=== PATIENT | female | born 1935 | race African-American/Black ===

== ENCOUNTER 2017-03-08 10:09 | Inpatient (IN) | payer MEDICARE, MEDICAID, OTHER ==
[~2017-03-08] VITALS: Ht 166.4 cm; Wt 106.6 kg
[~2017-03-08 10:09] MED LIST: UNKNOWN MEDICATIONS
[2017-03-08] MEDS ORDERED: SODIUM CHLORIDE 0.9% 1,000 ML IV ONE ×2 (11:11→16:41)
[2017-03-08] MEDS ORDERED: ONDANSETRON HCL 4MG/2ML VIAL IV STA (11:11)
[2017-03-08 11:30] LABS: EOSINOPHILS % 2.4 % (0.0-5.0); HEMATOCRIT. 32.9 % (36.0-48.0); LYMPHOCYTES % 9.8 % (20.0-50.0); MEAN CORPUSCULAR HEMOGLOBIN 30.1 pg (28.0-32.0); MEAN CORPUSCULAR VOLUME 90.4 fL (81.0-99.0); MEAN PLATELET VOLUME 6.6 fl (7.4-10.4); MONOCYTES % 9.8 % (2.0-8.0); PLATELET 326 x1000/uL (130-400); RED BLOOD CELL COUNT 3.64 mill/uL (4.2-5.4); RED CELL DISTRIBUTION WIDTH 14.3 % (11.6-14.6)
[2017-03-08 11:36] LABS: PROTHROMBIN TIME 10.7 sec
[2017-03-08 11:42] LABS: CARBON DIOXIDE 28 mEq/L (21-32); CHLORIDE 101 mEq/L (98-107)
[2017-03-08 13:40] LABS: CLARITY URINE CLEAR (CLEAR); COLOR URINE YELLOW (YELLOW); GLUCOSE URINE NEGATIVE (NEGATIVE); KETONES URINE NEGATIVE (NEGATIVE); LEUKOCYTE ESTERASE URINE NEGATIVE (NEGATIVE); NITRITE URINE NEGATIVE (NEGATIVE); OCCULT BLOOD URINE NEGATIVE (NEGATIVE); PROTEIN URINE NEGATIVE (NEGATIVE); SPECIFIC GRAVITY URINE 1.017 (1.005-1.030); UROBILINOGEN URINE 0.2 E.U./dL (0.2-1.0)
[2017-03-08] MEDS ORDERED: CLONIDINE 0.1MG TABLET PO PRN (18:30)
[2017-03-08] MEDS ORDERED: ENOXAPARIN 40MG/0.4ML SYR SUBCUT SCH (18:30)
[2017-03-08] MEDS ORDERED: HYDROMORPHONE HCL/PF 2MG/ML CPJ IV PRN (18:30)
[2017-03-08] MEDS ORDERED: ZOLPIDEM TARTRATE 5MG TABLET PO PRN (18:45)
[2017-03-08] MEDS ORDERED: SODIUM CHL 0.45% + KCL 20MEQ/L 1,000 ML IV SCH (18:45)
[2017-03-08] MEDS: IBRANCE 100 MG PO SCH (18:48)
[2017-03-08] MEDS: HYDROCODONE/ACETAMINOPHEN 5/325MG TABLET PO PRN (21:19)
[2017-03-08] MEDS: SODIUM CHLORIDE 0.45% 1000ML IV SCH (22:06)
[2017-03-08 23:50] VITALS: BP 110/45
[2017-03-09] VITALS: BP 110/45
[2017-03-09] MEDS: IPRATROPIUM/ALBUTEROL 0.5-3(2.5)MG/3ML NEB HHN SCH ×6 (00:50→20:44)
[2017-03-09] MEDS ORDERED: DEXTROSE 50% WATER 50ML SYRINGE IV PRN (01:45)
[2017-03-09] MEDS ORDERED: FLONASE NASAL SPRAY NS (02:14)
[2017-03-09] MEDS ORDERED: ACET-2178 PO (02:14)
[2017-03-09] MEDS ORDERED: METF500T4 PO (02:14)
[2017-03-09] MEDS ORDERED: ARIP2TAB3 PO (02:14)
[2017-03-09] MEDS ORDERED: HYDR-523 PO (02:14)
[2017-03-09] MEDS ORDERED: TRAZ-132 PO (02:14)
[2017-03-09] MEDS ORDERED: ASPI-1159 PO (02:14)
[2017-03-09] MEDS ORDERED: CHOL500010 PO (02:14)
[2017-03-09] MEDS ORDERED: LAMO25TA4 PO (02:14)
[2017-03-09] MEDS ORDERED: VALS160T2 PO (02:14)
[2017-03-09] MEDS ORDERED: PATAODR OP (02:14)
[2017-03-09] MEDS ORDERED: CEPACOL PO (02:14)
[2017-03-09] MEDS ORDERED: PARO40TA PO (02:14)
[2017-03-09] MEDS ORDERED: FURO-152 PO ×2 (02:14)
[2017-03-09] MEDS ORDERED: CYAN10009 PO (02:14)
[2017-03-09] MEDS ORDERED: PREG50CA PO (02:14)
[2017-03-09] MEDS ORDERED: BACL-141 PO (02:14)
[2017-03-09] MEDS ORDERED: PRAV40TA58 PO (02:14)
[2017-03-09] MEDS ORDERED: PALB100C PO (02:14)
[2017-03-09] MEDS ORDERED: LACT10SO6 PO (02:14)
[2017-03-09] MEDS ORDERED: TRAM50TA3 PO (02:14)
[2017-03-09] MEDS ORDERED: DOCU-150 PO (02:14)
[2017-03-09] MEDS ORDERED: NIFE30TA43 PO (02:14)
[2017-03-09 04:00] VITALS: BP 114/56
[2017-03-09] MEDS: OMEPRAZOLE 20MG CAPSULE EXTENDED RELEASE PO SCH (06:29)
[2017-03-09] MEDS: BLOOD SUGAR DIAGNOSTIC STRIP TEST SCH ×4 (06:31→20:52)
[2017-03-09] MEDS: INSULIN LISPRO 100 UNITS/ML SUBCUT SCH ×4 (06:33→21:00)
[2017-03-09] MEDS ORDERED: MEDICATION NOT ON FORMULARY EA (Lactulose 30 ML) PO PRN (07:00)
[2017-03-09] MEDS ORDERED: MEDICATION NOT ON FORMULARY EA (Valsartan (Diovan) 1 TAB) PO SCH (07:00)
[2017-03-09] MEDS ORDERED: [UNRECOGNIZED DRUG - OTHER] PO PRN (07:00)
[2017-03-09 07:22] LABS: BASOPHILS % 0.7 % (0.0-2.0); HEMATOCRIT. 34.4 % (36.0-48.0); HEMOGLOBIN. 10.8 g/dL (12.0-16.0); LYMPHOCYTES % 23.6 % (20.0-50.0); MEAN CORPUSCULAR HEMOGLOBIN 29.5 pg (28.0-32.0); MEAN PLATELET VOLUME 7.9 fl (7.4-10.4); MONOCYTES % 11.9 % (2.0-8.0); NEUTROPHILS % 59.8 % (40.0-76.0); PLATELET 305 x1000/uL (130-400); RED BLOOD CELL COUNT 3.66 mill/uL (4.2-5.4); RED CELL DISTRIBUTION WIDTH 14.1 % (11.6-14.6)
[2017-03-09 07:46] LABS: CARBON DIOXIDE 22 mEq/L (21-32); CHLORIDE 106 mEq/L (98-107); PHOSPHORUS 3.8 mg/dL (2.5-4.9)
[2017-03-09 08:00] VITALS: BP 110/48
[2017-03-09 08:36] LABS: BG BASE EXCESS -0.9 mmol/L (-2.0-2.0); BG CARBOXYHEMOGLOBIN 0.4 % (0.5-1.5); BG DEOXYHEMOGLOBIN 11.8 % (0.0-5.0); BG FRACTION INSPIRED OXYGEN 26; BG HCO3 ACT 24.8 mmol/L (22.0-26.0); BG METHEMOGLOBIN 0.2 % (0.0-1.5); BG OXYGEN SATURATION 88.1 % (92.0-98.5); BG OXYHEMOGLOBIN 87.6 % (94.0-97.0); BG PCO2 45.3 mmHg (35.0-45.0); BG PH 7.356 (7.350-7.450); BG PO2 55.5 mmHg (75.0-100.0); BG SAMPLE SITE RIGHT BRACHIAL; BG TOTAL HEMOGLOBIN 10.7 g/dL (12.0-18.0); BG VENT MODE NASAL CANNULA
[2017-03-09] MEDS ORDERED: OLOPATADINE HCL OP SCH (09:00)
[2017-03-09] MEDS ORDERED: MEDICATION NOT ON FORMULARY EA (Cholecalciferol (Vitamin D3) (Vitamin D3) 1 TAB) PO SCH (09:00)
[2017-03-09] MEDS: ARIPIPRAZOLE 2MG TABLET PO SCH (11:33)
[2017-03-09] MEDS: BACLOFEN 10MG TABLET PO SCH (11:34)
[2017-03-09] MEDS: NIFEDIPINE XL 30MG TAB PO SCH (11:34)
[2017-03-09] MEDS: CHOLECALCIFEROL (D3) 1000 UNIT TABLET PO SCH (11:34)
[2017-03-09] MEDS: LOSARTAN POTASSIUM 100 MG TABLET PO SCH (11:35)
[2017-03-09] MEDS: LAMOTRIGINE 25MG TABLET PO SCH (11:35)
[2017-03-09] MEDS: CYANOCOBALAMIN 1000MCG TABLET PO SCH (11:35)
[2017-03-09] MEDS: DOCUSATE SODIUM 250MG CAPSULE PO SCH (11:36)
[2017-03-09] MEDS: ASPIRIN 81MG EC TABLET PO SCH (11:36)
[2017-03-09] MEDS: PREGABALIN 25MG CAPSULE PO SCH ×3 (11:37→17:09)
[2017-03-09] MEDS: POLYVINYL ALCOHOL OPHTH DROPS 15ML BOTHEYE SCH ×4 (11:38→20:52)
[2017-03-09] MEDS: FLUTICASONE PROPIONATE 50MCG/SPRAY BOTTLE BOTHNSTRLS SCH ×2 (11:39→20:52)
[2017-03-09] MEDS: IBRANCE 100 MG PO SCH (11:39)
[2017-03-09] MEDS: ENOXAPARIN 30MG/0.3ML SYR SUBCUT SCH (11:51)
[2017-03-09] MEDS: HYDROCODONE/ACETAMINOPHEN 5/325MG TABLET PO PRN ×2 (11:52→20:05)
[2017-03-09 12:00] VITALS: BP 117/51
[2017-03-09 16:00] VITALS: BP 112/48
[2017-03-09 16:22] LABS: CLARITY URINE CLEAR (CLEAR); COLOR URINE YELLOW (YELLOW); GLUCOSE URINE NEGATIVE (NEGATIVE); KETONES URINE NEGATIVE (NEGATIVE); LEUKOCYTE ESTERASE URINE NEGATIVE (NEGATIVE); NITRITE URINE NEGATIVE (NEGATIVE); OCCULT BLOOD URINE TRACE (NEGATIVE); PROTEIN URINE NEGATIVE (NEGATIVE); SPECIFIC GRAVITY URINE 1.014 (1.005-1.030); UROBILINOGEN URINE 0.2 E.U./dL (0.2-1.0)
[2017-03-09] MEDS ORDERED: FUROSEMIDE 20MG TABLET PO SCH ×2 (17:00→21:00)
[2017-03-09] MEDS: ONDANSETRON HCL 4MG/2ML VIAL IV PRN ×2 (17:09→20:58)
[2017-03-09] MEDS: SODIUM CHLORIDE 0.45% 1000ML IV SCH (19:54)
[2017-03-09 20:00] VITALS: BP 142/65
[2017-03-09] MEDS: PAROXETINE HCL 20MG TABLET PO SCH (20:51)
[2017-03-09] MEDS: TRAZODONE HCL 100MG TABLET PO SCH (20:51)
[2017-03-09] MEDS: ATORVASTATIN CALCIUM 10MG TABLET PO SCH (20:52)
[2017-03-09] MEDS ORDERED: MEDICATION NOT ON FORMULARY EA (Pravastatin Sodium 1 TAB) PO SCH (21:00)
[2017-03-09] MEDS ORDERED: PAROXETINE HCL PO SCH (21:00)
[2017-03-10] VITALS: BP 104/48
[2017-03-10] MEDS: HYDROCODONE/ACETAMINOPHEN 5/325MG TABLET PO PRN (00:21)
[2017-03-10] MEDS: IPRATROPIUM/ALBUTEROL 0.5-3(2.5)MG/3ML NEB HHN SCH ×6 (00:32→20:47)
[2017-03-10] MEDS: LORAZEPAM 2MG/ML CPJ IV PRN ×2 (00:54→19:47)
[2017-03-10 04:06] VITALS: BP 125/52
[2017-03-10] MEDS: BLOOD SUGAR DIAGNOSTIC STRIP TEST SCH ×4 (06:30→21:48)
[2017-03-10] MEDS: SODIUM CHLORIDE 0.45% 1000ML IV SCH (06:30)
[2017-03-10] MEDS: OMEPRAZOLE 20MG CAPSULE EXTENDED RELEASE PO SCH ×2 (06:30→06:35)
[2017-03-10 07:08] LABS: BASOPHILS % 0.7 % (0.0-2.0); EOSINOPHILS % 5.5 % (0.0-5.0); HEMATOCRIT. 27.8 % (36.0-48.0); HEMOGLOBIN. 9.4 g/dL (12.0-16.0); MEAN CORPUSCULAR HEMOGLOBIN 30.4 pg (28.0-32.0); MEAN CORPUSCULAR VOLUME 90.1 fL (81.0-99.0); MEAN PLATELET VOLUME 7.5 fl (7.4-10.4); MONOCYTES % 13.2 % (2.0-8.0); NEUTROPHILS % 63.6 % (40.0-76.0); PLATELET 275 x1000/uL (130-400); RED BLOOD CELL COUNT 3.09 mill/uL (4.2-5.4); RED CELL DISTRIBUTION WIDTH 14.3 % (11.6-14.6)
[2017-03-10] MEDS: INSULIN LISPRO 100 UNITS/ML SUBCUT SCH ×4 (07:50→21:00)
[2017-03-10 08:00] VITALS: BP 107/45
[2017-03-10] MEDS: NIFEDIPINE XL 30MG TAB PO SCH (09:00)
[2017-03-10] MEDS: PREGABALIN 25MG CAPSULE PO SCH ×3 (09:00→18:10)
[2017-03-10] MEDS: BACLOFEN 10MG TABLET PO SCH (10:04)
[2017-03-10] MEDS: CHOLECALCIFEROL (D3) 1000 UNIT TABLET PO SCH (10:04)
[2017-03-10] MEDS: FLUTICASONE PROPIONATE 50MCG/SPRAY BOTTLE BOTHNSTRLS SCH ×2 (10:04→21:51)
[2017-03-10] MEDS: POLYVINYL ALCOHOL OPHTH DROPS 15ML BOTHEYE SCH ×4 (10:04→21:50)
[2017-03-10] MEDS: DOCUSATE SODIUM 250MG CAPSULE PO SCH (10:04)
[2017-03-10] MEDS: LOSARTAN POTASSIUM 100 MG TABLET PO SCH (10:05)
[2017-03-10] MEDS: LAMOTRIGINE 25MG TABLET PO SCH (10:05)
[2017-03-10] MEDS: ASPIRIN 81MG EC TABLET PO SCH (10:05)
[2017-03-10] MEDS: CYANOCOBALAMIN 1000MCG TABLET PO SCH (10:05)
[2017-03-10] MEDS: ARIPIPRAZOLE 2MG TABLET PO SCH (10:06)
[2017-03-10] MEDS ORDERED: SORBITOL 70% SOLN 30ML PO NR (11:15)
[2017-03-10 12:03] VITALS: BP 108/44
[2017-03-10] MEDS: ENOXAPARIN 30MG/0.3ML SYR SUBCUT SCH (12:37)
[2017-03-10] MEDS: THROAT LOZENGES-BENZOCAINE/MENTH/CETYLPYRD CL LOZENGES MM PRN (12:37)
[2017-03-10] MEDS: IBRANCE 100 MG PO SCH (13:08)
[2017-03-10] MEDS: MORPHINE SULFATE 2 MG/ML CPJ (NOT FOR IM USE) IV PRN ×2 (13:12→22:03)
[2017-03-10 16:00] VITALS: BP 137/57
[2017-03-10 20:00] VITALS: BP 149/63
[2017-03-10] MEDS: TRAZODONE HCL 100MG TABLET PO SCH (21:49)
[2017-03-10] MEDS: LACTULOSE 20G/30ML UDC PO PRN (21:49)
[2017-03-10] MEDS: ATORVASTATIN CALCIUM 10MG TABLET PO SCH (21:49)
[2017-03-10] MEDS: PAROXETINE HCL 20MG TABLET PO SCH (21:49)
[2017-03-11] VITALS: BP 151/69
[2017-03-11] MEDS: IPRATROPIUM/ALBUTEROL 0.5-3(2.5)MG/3ML NEB HHN SCH ×6 (01:03→20:19)
[2017-03-11 02:37] LABS: CREATININE URINE RANDOM 21.9 mg/dL
[2017-03-11] MEDS: MORPHINE SULFATE 2 MG/ML CPJ (NOT FOR IM USE) IV PRN (03:03)
[2017-03-11 04:00] VITALS: BP 153/71
[2017-03-11] MEDS: SODIUM CHLORIDE 0.45% 1000ML IV SCH (04:21)
[2017-03-11] MEDS: INSULIN LISPRO 100 UNITS/ML SUBCUT SCH ×4 (06:50→21:33)
[2017-03-11] MEDS: BLOOD SUGAR DIAGNOSTIC STRIP TEST SCH ×4 (06:50→21:34)
[2017-03-11] MEDS: OMEPRAZOLE 20MG CAPSULE EXTENDED RELEASE PO SCH (06:51)
[2017-03-11 07:14] LABS: HEMATOCRIT. 29.1 % (36.0-48.0); HEMOGLOBIN. 9.8 g/dL (12.0-16.0); MEAN CORPUSCULAR HEMOGLOBIN 30.4 pg (28.0-32.0); MEAN CORPUSCULAR VOLUME 90.4 fL (81.0-99.0); MEAN PLATELET VOLUME 8.5 fl (7.4-10.4); PLATELET 291 x1000/uL (130-400); RED BLOOD CELL COUNT 3.22 mill/uL (4.2-5.4)
[2017-03-11] MEDS ORDERED: ALPRAZOLAM 0.25 MG TABLET PO NR (07:30)
[2017-03-11 08:00] VITALS: BP 146/61
[2017-03-11 08:23] LABS: PLATELET ESTIMATE NORMAL
[2017-03-11] MEDS: PREGABALIN 25MG CAPSULE PO SCH ×3 (08:43→17:44)
[2017-03-11] MEDS: NIFEDIPINE XL 30MG TAB PO SCH (08:43)
[2017-03-11] MEDS: ASPIRIN 81MG EC TABLET PO SCH (08:43)
[2017-03-11] MEDS: LAMOTRIGINE 25MG TABLET PO SCH (08:44)
[2017-03-11] MEDS: LOSARTAN POTASSIUM 100 MG TABLET PO SCH (08:44)
[2017-03-11] MEDS: BACLOFEN 10MG TABLET PO SCH (08:44)
[2017-03-11] MEDS: CHOLECALCIFEROL (D3) 1000 UNIT TABLET PO SCH (08:44)
[2017-03-11] MEDS: DOCUSATE SODIUM 250MG CAPSULE PO SCH (08:44)
[2017-03-11] MEDS: CYANOCOBALAMIN 1000MCG TABLET PO SCH (08:44)
[2017-03-11] MEDS: ARIPIPRAZOLE 2MG TABLET PO SCH (08:44)
[2017-03-11] MEDS: ENOXAPARIN 30MG/0.3ML SYR SUBCUT SCH (08:47)
[2017-03-11] MEDS: POLYVINYL ALCOHOL OPHTH DROPS 15ML BOTHEYE SCH ×4 (08:52→21:32)
[2017-03-11] MEDS: IBRANCE 100 MG PO SCH (08:52)
[2017-03-11] MEDS: FLUTICASONE PROPIONATE 50MCG/SPRAY BOTTLE BOTHNSTRLS SCH ×2 (08:52→21:32)
[2017-03-11 12:00] VITALS: BP 140/56
[2017-03-11] MEDS: ACETAMINOPHEN 325MG TABLET PO PRN (14:16)
[2017-03-11] MEDS ORDERED: FUROSEMIDE 40MG/4ML VIAL IVP NR (15:30)
[2017-03-11] MEDS ORDERED: POTASSIUM CHLORIDE 10MEQ TABLET SR PO NR (15:30)
[2017-03-11 16:00] VITALS: BP 161/62
[2017-03-11 16:15] LABS: BG BASE EXCESS 1.8 mmol/L (-2.0-2.0); BG CARBOXYHEMOGLOBIN 0.7 % (0.5-1.5); BG DEOXYHEMOGLOBIN 10.9 % (0.0-5.0); BG FRACTION INSPIRED OXYGEN 28; BG HCO3 ACT 25.9 mmol/L (22.0-26.0); BG METHEMOGLOBIN 0.2 % (0.0-1.5); BG OXYHEMOGLOBIN 88.2 % (94.0-97.0); BG PCO2 38.7 mmHg (35.0-45.0); BG PH 7.444 (7.350-7.450); BG PO2 54.7 mmHg (75.0-100.0); BG SAMPLE SITE RIGHT BRACHIAL; BG VENT MODE NASAL CANNULA
[2017-03-11] MEDS: THROAT LOZENGES-BENZOCAINE/MENTH/CETYLPYRD CL LOZENGES MM PRN (17:44)
[2017-03-11 20:00] VITALS: BP 163/61
[2017-03-11] MEDS: LORAZEPAM 2MG/ML CPJ IV PRN ×2 (20:07→23:59)
[2017-03-11] MEDS: TRAZODONE HCL 100MG TABLET PO SCH (21:32)
[2017-03-11] MEDS: PAROXETINE HCL 20MG TABLET PO SCH (21:32)
[2017-03-11] MEDS: ATORVASTATIN CALCIUM 10MG TABLET PO SCH (21:32)
[2017-03-12] VITALS: BP 197/84
[2017-03-12] MEDS: IPRATROPIUM/ALBUTEROL 0.5-3(2.5)MG/3ML NEB HHN SCH ×6 (00:11→21:52)
[2017-03-12 04:00] VITALS: BP 181/72
[2017-03-12 05:45] LABS: BASOPHILS % 0.5 % (0.0-2.0); EOSINOPHILS % 1.8 % (0.0-5.0); HEMATOCRIT. 29.9 % (36.0-48.0); LYMPHOCYTES % 9.5 % (20.0-50.0); MEAN CORPUSCULAR HEMOGLOBIN 30.3 pg (28.0-32.0); MEAN CORPUSCULAR VOLUME 90.3 fL (81.0-99.0); MEAN PLATELET VOLUME 7.6 fl (7.4-10.4); MONOCYTES % 7.3 % (2.0-8.0); NEUTROPHILS % 80.9 % (40.0-76.0); PLATELET 348 x1000/uL (130-400); RED BLOOD CELL COUNT 3.31 mill/uL (4.2-5.4)
[2017-03-12] MEDS: OMEPRAZOLE 20MG CAPSULE EXTENDED RELEASE PO SCH (06:22)
[2017-03-12] MEDS: BLOOD SUGAR DIAGNOSTIC STRIP TEST SCH ×4 (07:05→21:04)
[2017-03-12] MEDS: INSULIN LISPRO 100 UNITS/ML SUBCUT SCH ×4 (07:50→21:03)
[2017-03-12] MEDS ORDERED: HYDRALAZINE HCL 25MG TABLET PO SCH (08:00)
[2017-03-12 08:37] VITALS: BP 182/70
[2017-03-12] MEDS: FLUTICASONE PROPIONATE 50MCG/SPRAY BOTTLE BOTHNSTRLS SCH (08:52)
[2017-03-12] MEDS: IBRANCE 100 MG PO SCH (08:52)
[2017-03-12] MEDS: LAMOTRIGINE 25MG TABLET PO SCH (08:53)
[2017-03-12] MEDS: CHOLECALCIFEROL (D3) 1000 UNIT TABLET PO SCH (08:54)
[2017-03-12] MEDS: DOCUSATE SODIUM 250MG CAPSULE PO SCH (08:54)
[2017-03-12] MEDS: ARIPIPRAZOLE 2MG TABLET PO SCH (08:54)
[2017-03-12] MEDS: ASPIRIN 81MG EC TABLET PO SCH (08:54)
[2017-03-12] MEDS: PREGABALIN 25MG CAPSULE PO SCH ×3 (08:54→17:57)
[2017-03-12] MEDS: NIFEDIPINE XL 30MG TAB PO SCH (08:54)
[2017-03-12] MEDS: LOSARTAN POTASSIUM 100 MG TABLET PO SCH (08:54)
[2017-03-12] MEDS: CYANOCOBALAMIN 1000MCG TABLET PO SCH (08:55)
[2017-03-12] MEDS: BACLOFEN 10MG TABLET PO SCH (08:55)
[2017-03-12] MEDS: METOPROLOL TARTRATE 25MG TABLET PO SCH ×2 (08:55→21:04)
[2017-03-12] MEDS: POLYVINYL ALCOHOL OPHTH DROPS 15ML BOTHEYE SCH ×4 (08:56→21:02)
[2017-03-12] MEDS ORDERED: ENOXAPARIN 40MG/0.4ML SYR SUBCUT SCH (09:00)
[2017-03-12] MEDS ORDERED: FUROSEMIDE 20MG/2ML VIAL IVP NR (09:00)
[2017-03-12] MEDS: POTASSIUM CHLORIDE 8 MEQ TABLET.SA PO SCH (09:35)
[2017-03-12 12:44] VITALS: BP 143/69
[2017-03-12] MEDS: HYDRALAZINE HCL 25MG TABLET PO SCH ×2 (15:03→21:04)
[2017-03-12 17:37] VITALS: BP 146/63
[2017-03-12] MEDS: LACTULOSE 20G/30ML UDC PO PRN (17:57)
[2017-03-12 20:53] VITALS: BP 158/68
[2017-03-12] MEDS: ENOXAPARIN 30MG/0.3ML SYR SUBCUT SCH (21:02)
[2017-03-12] MEDS: ATORVASTATIN CALCIUM 10MG TABLET PO SCH (21:03)
[2017-03-12] MEDS: TRAZODONE HCL 100MG TABLET PO SCH (21:04)
[2017-03-12] MEDS: PAROXETINE HCL 20MG TABLET PO SCH (21:04)
[2017-03-13] MEDS: ONDANSETRON HCL 4MG/2ML VIAL IV PRN ×3 (00:05→13:26)
[2017-03-13] MEDS: IPRATROPIUM/ALBUTEROL 0.5-3(2.5)MG/3ML NEB HHN SCH ×5 (00:51→16:10)
[2017-03-13 01:03] VITALS: BP 158/75
[2017-03-13 04:33] VITALS: BP 141/62
[2017-03-13 05:55] LABS: EOSINOPHILS % 3.1 % (0.0-5.0); HEMATOCRIT. 30.8 % (36.0-48.0); HEMOGLOBIN. 10.3 g/dL (12.0-16.0); LYMPHOCYTES % 11.2 % (20.0-50.0); MEAN CORPUSCULAR HEMOGLOBIN 30.1 pg (28.0-32.0); MEAN CORPUSCULAR VOLUME 90.4 fL (81.0-99.0); MEAN PLATELET VOLUME 7.7 fl (7.4-10.4); MONOCYTES % 6.5 % (2.0-8.0); NEUTROPHILS % 78.2 % (40.0-76.0); PLATELET 378 x1000/uL (130-400); RED BLOOD CELL COUNT 3.41 mill/uL (4.2-5.4); RED CELL DISTRIBUTION WIDTH 14.1 % (11.6-14.6)
[2017-03-13] MEDS: HYDRALAZINE HCL 25MG TABLET PO SCH ×2 (05:56→15:04)
[2017-03-13] MEDS: OMEPRAZOLE 20MG CAPSULE EXTENDED RELEASE PO SCH (06:25)
[2017-03-13] MEDS: BLOOD SUGAR DIAGNOSTIC STRIP TEST SCH ×2 (06:25→12:20)
[2017-03-13] MEDS: INSULIN LISPRO 100 UNITS/ML SUBCUT SCH ×2 (07:50→12:50)
[2017-03-13 08:04] VITALS: BP 122/59
[2017-03-13] MEDS: POLYVINYL ALCOHOL OPHTH DROPS 15ML BOTHEYE SCH ×2 (09:00→10:18)
[2017-03-13] MEDS ORDERED: SORBITOL 70% SOLN 30ML PO SCH (09:15)
[2017-03-13] MEDS: ASPIRIN 81MG EC TABLET PO SCH (10:09)
[2017-03-13] MEDS: BACLOFEN 10MG TABLET PO SCH (10:09)
[2017-03-13] MEDS: DOCUSATE SODIUM 250MG CAPSULE PO SCH (10:09)
[2017-03-13] MEDS: NIFEDIPINE XL 30MG TAB PO SCH (10:09)
[2017-03-13] MEDS: ARIPIPRAZOLE 2MG TABLET PO SCH (10:09)
[2017-03-13] MEDS: PREGABALIN 25MG CAPSULE PO SCH ×2 (10:10→15:04)
[2017-03-13] MEDS: IBRANCE 100 MG PO SCH (10:10)
[2017-03-13] MEDS: LOSARTAN POTASSIUM 100 MG TABLET PO SCH (10:11)
[2017-03-13] MEDS: METOPROLOL TARTRATE 25MG TABLET PO SCH (10:11)
[2017-03-13] MEDS: POTASSIUM CHLORIDE 8 MEQ TABLET.SA PO SCH (10:11)
[2017-03-13] MEDS: ENOXAPARIN 30MG/0.3ML SYR SUBCUT SCH (10:12)
[2017-03-13 12:00] VITALS: BP 128/55
[2017-03-13] MEDS: CHOLECALCIFEROL (D3) 1000 UNIT TABLET PO SCH (15:04)
[2017-03-13] MEDS: LAMOTRIGINE 25MG TABLET PO SCH (15:04)
[2017-03-13] MEDS: CYANOCOBALAMIN 1000MCG TABLET PO SCH (15:04)
[2017-03-13 15:55] VITALS: BP 111/68
[2017-03-13] MEDS: ACETAMINOPHEN 325MG TABLET PO PRN (16:30)
[2017-03-13] MEDS: ATORVASTATIN CALCIUM 10MG TABLET PO SCH (16:31)
[2017-03-13 17:53] VITALS: BP 151/61
[2017-03-14] MEDS ORDERED: FAMOTIDINE 20MG TABLET PO SCH (09:00)
== END 2017-03-13 19:00 | DRG 682 ==
LOC: ER 10:27 → 6WST 16:44
PROVIDERS: ADMIT Internal Medicine Geriatric Medicine; ATTEND Internal Medicine Geriatric Medicine
DX: N17.0 Acute kidney failure with tubular necrosis (principal); G93.41 Metabolic encephalopathy; J81.0 Acute pulmonary edema; E44.1 Mild protein-calorie malnutrition; E66.01 Morbid (severe) obesity due to excess calories; Z68.38 Body mass index [BMI] 38.0-38.9, adult; E11.42 Type 2 diabetes mellitus with diabetic polyneuropathy; E11.59 Type 2 diabetes mellitus with other circulatory complications; E78.00 Pure hypercholesterolemia, unspecified; F31.9 Bipolar disorder, unspecified; G89.4 Chronic pain syndrome; I87.2 Venous insufficiency (chronic) (peripheral); K21.9 Gastro-esophageal reflux disease without esophagitis; E11.51 Type 2 diabetes mellitus with diabetic peripheral angiopathy without gangrene; M19.90 Unspecified osteoarthritis, unspecified site; E11.620 Type 2 diabetes mellitus with diabetic dermatitis; I12.9 Hypertensive chronic kidney disease with stage 1 through stage 4 chronic kidney disease, or unspecified chronic kidney disease; E11.22 Type 2 diabetes mellitus with diabetic chronic kidney disease; F41.1 Generalized anxiety disorder; F43.21 Adjustment disorder with depressed mood; D63.8 Anemia in other chronic diseases classified elsewhere; E86.0 Dehydration; K59.09 Other constipation; L89.92 Pressure ulcer of unspecified site, stage 2; N18.9 Chronic kidney disease, unspecified; Z96.641 Presence of right artificial hip joint; Z99.3 Dependence on wheelchair; Z90.13 Acquired absence of bilateral breasts and nipples; Z90.710 Acquired absence of both cervix and uterus; Z88.6 Allergy status to analgesic agent; Z88.8 Allergy status to other drugs, medicaments and biological substances; Z85.05 Personal history of malignant neoplasm of liver; Z85.3 Personal history of malignant neoplasm of breast; Z86.73 Personal history of transient ischemic attack (TIA), and cerebral infarction without residual deficits; Z85.028 Personal history of other malignant neoplasm of stomach; Z80.51 Family history of malignant neoplasm of kidney
CPT/HCPCS: 36415; 36600; 71010; 74176; 76770; 80048; 80053; 81001; 81003; 82375; 82570; 82805; 82962; 83036; 83690; 84100; 84300; 84443; 84550; 85025; 85610; 87086; 93306; 93970; 94640; 96361; 96374; 99285; A6261; J1170; J1650; J1815; J1940; J2060; J2270; J2405; J7030; J7620; A4315

== ENCOUNTER 2017-06-20 17:59 | Inpatient (IN) | payer MEDICARE, MEDICAID ==
[~2017-06-20] VITALS: Ht 167.6 cm; Wt 112.0 kg
[~2017-06-20 17:59] MED LIST changes: +ACET-2178 PO; +ARIP2TAB3 PO; +ASPI-1159 PO; +BACL-141 PO; +CEPACOL PO; +CHOL500010 PO; +CYAN10009 PO; +DOCU-150 PO; +FLONASE NASAL SPRAY NS; +FURO-152 PO; +HYDR-523 PO; +LACT10SO6 PO; +LAMO25TA4 PO; +METF500T4 PO; +NIFE30TA43 PO; +PALB100C PO; +PARO40TA PO; +PATAODR OP; +PRAV40TA58 PO; +PREG50CA PO; +TRAM50TA3 PO; +TRAZ-132 PO; -UNKNOWN MEDICATIONS; +VALS160T2 PO
[2017-06-20] MEDS ORDERED: VANCOMYCIN 1 G PREMIX 200 ML IV ONE (18:30)
[2017-06-20] MEDS ORDERED: PIPERACILLIN/TAZ 3.375G PREMIX 50 ML IV ONE (18:30)
[2017-06-20 19:02] LABS: INR 1.1; PARTIAL THROMBOPLASTIN TIME 20.1 sec (23.4-31.0)
[2017-06-20 19:03] LABS: CARBON DIOXIDE 23 mEq/L (21-32); CHLORIDE 99 mEq/L (98-107); CREATINE KINASE 375 IU/L (26-192); TROPONIN I 0.03 ng/mL (0.00-0.04)
[2017-06-20 19:41] LABS: HEMOGLOBIN. 10.2 g/dL (12.0-16.0); MEAN CORPUSCULAR HEMOGLOBIN 30.4 pg (28.0-32.0); MEAN CORPUSCULAR VOLUME 89.8 fL (81.0-99.0); MEAN PLATELET VOLUME 7.7 fl (7.4-10.4); PLATELET 150 x1000/uL (130-400); RED BLOOD CELL COUNT 3.34 mill/uL (4.2-5.4); RED CELL DISTRIBUTION WIDTH 15.1 % (11.6-14.6)
[2017-06-20 20:40] LABS: PLATELET ESTIMATE NORMAL
[2017-06-20 20:43] LABS: CLARITY URINE CLOUDY (CLEAR); COLOR URINE YELLOW (YELLOW); GLUCOSE URINE NEGATIVE (NEGATIVE); KETONES URINE TRACE (NEGATIVE); LEUKOCYTE ESTERASE URINE 2+ (NEGATIVE); NITRITE URINE NEGATIVE (NEGATIVE); OCCULT BLOOD URINE 2+ (NEGATIVE); PH URINE 5.5 (4.5-8.0); PROTEIN URINE 3+ (NEGATIVE); SPECIFIC GRAVITY URINE 1.017 (1.005-1.030); UROBILINOGEN URINE 0.2 E.U./dL (0.2-1.0)
[2017-06-20 22:00] VITALS: BP 146/55
[2017-06-20 22:41] VITALS: BP 146/55
[2017-06-20] MEDS ORDERED: CLONIDINE 0.1MG TABLET PO PRN (23:30)
[2017-06-20] MEDS ORDERED: DEXTROSE 50% WATER 50ML SYRINGE IV PRN (23:45)
[2017-06-21] VITALS (11 sets, daily range): BP systolic 83–154; BP diastolic 29–69
[2017-06-21] MEDS: PIPERACILLIN/TAZ 3.375G PREMIX 50 ML IV SCH ×3 (02:12→17:55)
[2017-06-21] MEDS: IPRATROPIUM/ALBUTEROL 0.5-3(2.5)MG/3ML NEB HHN SCH ×5 (03:27→20:18)
[2017-06-21] MEDS: SODIUM CHL 0.45% + KCL 20MEQ/L 1,000 ML IV SCH (03:40)
[2017-06-21] MEDS ORDERED: VANCOMYCIN 750 MG PREMIX 150 ML IV NR (04:00)
[2017-06-21 06:11] LABS: HEMATOCRIT. 28.3 % (36.0-48.0); HEMOGLOBIN. 9.5 g/dL (12.0-16.0); MEAN CORPUSCULAR HEMOGLOBIN 30.4 pg (28.0-32.0); MEAN CORPUSCULAR VOLUME 90.4 fL (81.0-99.0); MEAN PLATELET VOLUME 7.7 fl (7.4-10.4); PLATELET 140 x1000/uL (130-400); RED BLOOD CELL COUNT 3.13 mill/uL (4.2-5.4); RED CELL DISTRIBUTION WIDTH 14.7 % (11.6-14.6)
[2017-06-21] MEDS: INSULIN LISPRO 100 UNITS/ML SUBCUT SCH ×4 (06:35→20:52)
[2017-06-21] MEDS: BLOOD SUGAR DIAGNOSTIC STRIP TEST SCH ×4 (06:35→20:30)
[2017-06-21] MEDS ORDERED: ENOXAPARIN 40MG/0.4ML SYR SUBCUT SCH (09:00)
[2017-06-21] MEDS: ENOXAPARIN 30MG/0.3ML SYR SUBCUT SCH ×2 (09:19→20:30)
[2017-06-21] MEDS: HYDROCODONE/ACETAMINOPHEN 5/325MG TABLET PO PRN (10:44)
[2017-06-21] MEDS ORDERED: LACTULOSE 20G/30ML UDC PO PRN (11:45)
[2017-06-21] MEDS ORDERED: ACETAMINOPHEN 325MG TABLET PO PRN (11:45)
[2017-06-21] MEDS: CITALOPRAM HYDROBROMIDE 10MG TABLET PO SCH (12:00)
[2017-06-21] MEDS: NIFEDIPINE XL 30MG TAB PO SCH (12:00)
[2017-06-21] MEDS ORDERED: SODIUM CHLORIDE 0.9% 250 ML IV ONE ×2 (12:15→13:00)
[2017-06-21] MEDS: PREGABALIN 25MG CAPSULE PO SCH ×2 (13:00→17:55)
[2017-06-21] MEDS: ARIPIPRAZOLE 2MG TABLET PO SCH (13:00)
[2017-06-21] MEDS: CYANOCOBALAMIN 1000MCG TABLET PO SCH (13:25)
[2017-06-21] MEDS: BACLOFEN 10MG TABLET PO SCH (13:25)
[2017-06-21] MEDS: LAMOTRIGINE 25MG TABLET PO SCH (13:26)
[2017-06-21] MEDS: DOCUSATE SODIUM 100MG CAPSULE PO SCH (13:26)
[2017-06-21 15:35] LABS: BG BASE EXCESS -0.9 mmol/L (-2.0-2.0); BG CARBOXYHEMOGLOBIN 0.1 % (0.5-1.5); BG DEOXYHEMOGLOBIN 5.7 % (0.0-5.0); BG FRACTION INSPIRED OXYGEN 28; BG HCO3 ACT 23.1 mmol/L (22.0-26.0); BG METHEMOGLOBIN 0.1 % (0.0-1.5); BG OXYGEN SATURATION 94.3 % (92.0-98.5); BG OXYHEMOGLOBIN 94.1 % (94.0-97.0); BG PH 7.426 (7.350-7.450); BG PO2 73.4 mmHg (75.0-100.0); BG SAMPLE SITE LEFT BRACHIAL; BG TOTAL HEMOGLOBIN 9.9 g/dL (12.0-18.0); BG VENT MODE NASAL CANNULA
[2017-06-21 16:16] LABS: PLATELET ESTIMATE NORMAL
[2017-06-21] MEDS: GUAIFENESIN 600MG ER TABLET PO SCH (20:29)
[2017-06-21] MEDS: TRAMADOL 50MG TABLET PO PRN (23:41)
[2017-06-22] VITALS (8 sets, daily range): BP systolic 106–181; BP diastolic 44–82
[2017-06-22] MEDS: IPRATROPIUM/ALBUTEROL 0.5-3(2.5)MG/3ML NEB HHN SCH ×7 (00:32→23:57)
[2017-06-22] MEDS: SODIUM CHL 0.45% + KCL 20MEQ/L 1,000 ML IV SCH ×2 (01:24→19:56)
[2017-06-22] MEDS: PIPERACILLIN/TAZ 3.375G PREMIX 50 ML IV SCH ×2 (01:24→09:03)
[2017-06-22] MEDS: HYDROCODONE/ACETAMINOPHEN 5/325MG TABLET PO PRN ×2 (05:29→20:24)
[2017-06-22] MEDS: BLOOD SUGAR DIAGNOSTIC STRIP TEST SCH ×4 (05:49→20:30)
[2017-06-22] MEDS: INSULIN LISPRO 100 UNITS/ML SUBCUT SCH ×4 (05:50→20:30)
[2017-06-22 06:05] LABS: HEMATOCRIT. 26.9 % (36.0-48.0); HEMOGLOBIN. 9.1 g/dL (12.0-16.0); MEAN CORPUSCULAR HEMOGLOBIN 30.8 pg (28.0-32.0); MEAN CORPUSCULAR VOLUME 91.1 fL (81.0-99.0); MEAN PLATELET VOLUME 8.2 fl (7.4-10.4); PLATELET 136 x1000/uL (130-400); RED BLOOD CELL COUNT 2.95 mill/uL (4.2-5.4); RED CELL DISTRIBUTION WIDTH 14.9 % (11.6-14.6)
[2017-06-22] MEDS: ARIPIPRAZOLE 2MG TABLET PO SCH (08:59)
[2017-06-22] MEDS: CYANOCOBALAMIN 1000MCG TABLET PO SCH (08:59)
[2017-06-22] MEDS: NIFEDIPINE XL 30MG TAB PO SCH (08:59)
[2017-06-22] MEDS: GUAIFENESIN 600MG ER TABLET PO SCH ×2 (09:00→20:20)
[2017-06-22] MEDS: BACLOFEN 10MG TABLET PO SCH (09:00)
[2017-06-22] MEDS: LAMOTRIGINE 25MG TABLET PO SCH (09:00)
[2017-06-22] MEDS: DOCUSATE SODIUM 100MG CAPSULE PO SCH (09:03)
[2017-06-22] MEDS: ENOXAPARIN 30MG/0.3ML SYR SUBCUT SCH (09:12)
[2017-06-22] MEDS: CITALOPRAM HYDROBROMIDE 10MG TABLET PO SCH (09:35)
[2017-06-22] MEDS: PREGABALIN 25MG CAPSULE PO SCH ×3 (09:35→17:24)
[2017-06-22] MEDS ORDERED: LEVOFLOXACIN 500MG PREMIX 100 ML IV NR (14:00)
[2017-06-22] MEDS ORDERED: NA PHOS,M-B/NA PHOS,DI-BA ENEMA 118ML PR NR (15:45)
[2017-06-22] MEDS ORDERED: VANCOMYCIN 500 MG PREMIX 100 ML IV SCH (16:00)
[2017-06-22] MEDS: TRAZODONE HCL 100MG TABLET PO PRN (22:01)
[2017-06-23] VITALS: BP 131/68
[2017-06-23 04:00] VITALS: BP 148/62
[2017-06-23] MEDS: IPRATROPIUM/ALBUTEROL 0.5-3(2.5)MG/3ML NEB HHN SCH ×4 (04:43→20:32)
[2017-06-23 06:09] LABS: MEAN CORPUSCULAR HEMOGLOBIN 30.5 pg (28.0-32.0); MEAN PLATELET VOLUME 8.3 fl (7.4-10.4); PLATELET 187 x1000/uL (130-400); RED BLOOD CELL COUNT 3.62 mill/uL (4.2-5.4); RED CELL DISTRIBUTION WIDTH 14.6 % (11.6-14.6)
[2017-06-23 06:28] LABS: CHLORIDE 102 mEq/L (98-107)
[2017-06-23 06:37] LABS: CARBON DIOXIDE 22 mEq/L (21-32); TROPONIN I < 0.02 ng/mL (0.00-0.04)
[2017-06-23] MEDS: INSULIN LISPRO 100 UNITS/ML SUBCUT SCH ×4 (07:13→21:57)
[2017-06-23] MEDS: BLOOD SUGAR DIAGNOSTIC STRIP TEST SCH ×4 (07:13→21:31)
[2017-06-23 07:44] LABS: MEAN CORPUSCULAR VOLUME 91.2 fL (81.0-99.0)
[2017-06-23] MEDS: CITALOPRAM HYDROBROMIDE 10MG TABLET PO SCH (08:00)
[2017-06-23] MEDS: CYANOCOBALAMIN 1000MCG TABLET PO SCH (08:00)
[2017-06-23] MEDS: ARIPIPRAZOLE 2MG TABLET PO SCH (08:00)
[2017-06-23] MEDS: BACLOFEN 10MG TABLET PO SCH (08:00)
[2017-06-23] MEDS: PREGABALIN 25MG CAPSULE PO SCH ×3 (08:00→18:31)
[2017-06-23] MEDS: LAMOTRIGINE 25MG TABLET PO SCH (08:00)
[2017-06-23] MEDS: GUAIFENESIN 600MG ER TABLET PO SCH ×2 (08:00→21:27)
[2017-06-23] MEDS: DOCUSATE SODIUM 100MG CAPSULE PO SCH (08:03)
[2017-06-23 08:45] VITALS: BP 145/56
[2017-06-23] MEDS: HYDROCODONE/ACETAMINOPHEN 5/325MG TABLET PO PRN ×3 (08:55→23:07)
[2017-06-23] MEDS ORDERED: ENOXAPARIN 40MG/0.4ML SYR SUBCUT SCH (09:00)
[2017-06-23] MEDS: NIFEDIPINE XL 30MG TAB PO SCH (10:32)
[2017-06-23 12:00] VITALS: BP 133/41
[2017-06-23 14:21] LABS: PLATELET ESTIMATE NORMAL
[2017-06-23] MEDS: VANCOMYCIN 750 MG PREMIX 150 ML IV SCH (15:02)
[2017-06-23 16:00] VITALS: BP 125/58
[2017-06-23] MEDS: LEVOFLOXACIN 250MG PREMIX 50 ML IV SCH (16:35)
[2017-06-23 20:00] VITALS: BP 144/58
[2017-06-23] MEDS: TRAMADOL 50MG TABLET PO PRN (21:28)
[2017-06-23] MEDS: TRAZODONE HCL 100MG TABLET PO PRN (23:08)
[2017-06-24] VITALS: BP 131/53
[2017-06-24] MEDS: IPRATROPIUM/ALBUTEROL 0.5-3(2.5)MG/3ML NEB HHN SCH ×6 (00:46→20:21)
[2017-06-24] MEDS: SODIUM CHL 0.45% + KCL 20MEQ/L 1,000 ML IV SCH ×2 (04:04→09:00)
[2017-06-24 04:19] VITALS: BP 131/41
[2017-06-24] MEDS: TRAMADOL 50MG TABLET PO PRN ×2 (04:19→11:22)
[2017-06-24 05:57] LABS: HEMATOCRIT. 30.6 % (36.0-48.0); HEMOGLOBIN. 10.1 g/dL (12.0-16.0); MEAN CORPUSCULAR HEMOGLOBIN 29.9 pg (28.0-32.0); MEAN CORPUSCULAR VOLUME 90.6 fL (81.0-99.0); MEAN PLATELET VOLUME 7.6 fl (7.4-10.4); PLATELET 257 x1000/uL (130-400); RED BLOOD CELL COUNT 3.38 mill/uL (4.2-5.4); RED CELL DISTRIBUTION WIDTH 14.5 % (11.6-14.6)
[2017-06-24 06:21] LABS: PHOSPHORUS 2.5 mg/dL (2.5-4.9)
[2017-06-24] MEDS: INSULIN LISPRO 100 UNITS/ML SUBCUT SCH ×4 (06:32→20:37)
[2017-06-24] MEDS: BLOOD SUGAR DIAGNOSTIC STRIP TEST SCH ×4 (06:32→20:37)
[2017-06-24] MEDS: HYDROCODONE/ACETAMINOPHEN 5/325MG TABLET PO PRN (06:38)
[2017-06-24 08:00] VITALS: BP 132/56
[2017-06-24] MEDS: DOCUSATE SODIUM 100MG CAPSULE PO SCH (08:50)
[2017-06-24] MEDS: PREGABALIN 25MG CAPSULE PO SCH ×3 (08:50→17:05)
[2017-06-24] MEDS: ARIPIPRAZOLE 2MG TABLET PO SCH (08:50)
[2017-06-24] MEDS: CYANOCOBALAMIN 1000MCG TABLET PO SCH (08:50)
[2017-06-24] MEDS: BACLOFEN 10MG TABLET PO SCH (08:50)
[2017-06-24] MEDS: CITALOPRAM HYDROBROMIDE 10MG TABLET PO SCH (08:51)
[2017-06-24] MEDS: LAMOTRIGINE 25MG TABLET PO SCH (08:51)
[2017-06-24] MEDS: GUAIFENESIN 600MG ER TABLET PO SCH ×2 (08:51→20:45)
[2017-06-24] MEDS: NIFEDIPINE XL 30MG TAB PO SCH (08:51)
[2017-06-24] MEDS: ENOXAPARIN 30MG/0.3ML SYR SUBCUT SCH ×2 (08:52→20:45)
[2017-06-24] MEDS: VANCOMYCIN 750 MG PREMIX 150 ML IV SCH (11:25)
[2017-06-24 12:00] VITALS: BP 131/50
[2017-06-24] MEDS: LEVOFLOXACIN 250MG PREMIX 50 ML IV SCH (13:02)
[2017-06-24 13:20] LABS: PLATELET ESTIMATE NORMAL
[2017-06-24] MEDS: VANCOMYCIN 1 G PREMIX 200 ML IV SCH (14:55)
[2017-06-24 16:00] VITALS: BP 118/47
[2017-06-24 20:00] VITALS: BP 133/51
[2017-06-24 23:41] LABS: PLATELET ESTIMATE NORMAL
[2017-06-25] VITALS: BP 119/47
[2017-06-25] MEDS: IPRATROPIUM/ALBUTEROL 0.5-3(2.5)MG/3ML NEB HHN SCH ×5 (00:32→21:00)
[2017-06-25] MEDS: HYDROCODONE/ACETAMINOPHEN 5/325MG TABLET PO PRN ×3 (01:34→18:44)
[2017-06-25 04:00] VITALS: BP 130/63
[2017-06-25] MEDS: BLOOD SUGAR DIAGNOSTIC STRIP TEST SCH ×4 (06:34→21:40)
[2017-06-25] MEDS: INSULIN LISPRO 100 UNITS/ML SUBCUT SCH ×4 (06:34→21:00)
[2017-06-25 07:42] VITALS: BP 125/55
[2017-06-25 07:50] LABS: HEMATOCRIT. 29.4 % (36.0-48.0); HEMOGLOBIN. 9.8 g/dL (12.0-16.0); MEAN CORPUSCULAR HEMOGLOBIN 30.1 pg (28.0-32.0); MEAN PLATELET VOLUME 8.1 fl (7.4-10.4); PLATELET 306 x1000/uL (130-400); RED BLOOD CELL COUNT 3.27 mill/uL (4.2-5.4); RED CELL DISTRIBUTION WIDTH 14.6 % (11.6-14.6)
[2017-06-25 08:03] LABS: CARBON DIOXIDE 25 mEq/L (21-32); CHLORIDE 103 mEq/L (98-107); TROPONIN I < 0.02 ng/mL (0.00-0.04)
[2017-06-25] MEDS: IBRANCE 100 MG PO SCH (09:08)
[2017-06-25] MEDS: PREGABALIN 25MG CAPSULE PO SCH ×3 (09:10→16:50)
[2017-06-25] MEDS: DOCUSATE SODIUM 100MG CAPSULE PO SCH (09:10)
[2017-06-25] MEDS: CITALOPRAM HYDROBROMIDE 10MG TABLET PO SCH (09:10)
[2017-06-25] MEDS: BACLOFEN 10MG TABLET PO SCH (09:10)
[2017-06-25] MEDS: ARIPIPRAZOLE 2MG TABLET PO SCH (09:11)
[2017-06-25] MEDS: NIFEDIPINE XL 30MG TAB PO SCH (09:11)
[2017-06-25] MEDS: GUAIFENESIN 600MG ER TABLET PO SCH ×2 (09:11→21:37)
[2017-06-25] MEDS: LAMOTRIGINE 25MG TABLET PO SCH (09:11)
[2017-06-25] MEDS: CYANOCOBALAMIN 1000MCG TABLET PO SCH (09:16)
[2017-06-25] MEDS: ENOXAPARIN 30MG/0.3ML SYR SUBCUT SCH ×2 (09:16→21:38)
[2017-06-25] MEDS: TRAMADOL 50MG TABLET PO PRN (11:00)
[2017-06-25 11:41] VITALS: BP 121/52
[2017-06-25 11:45] VITALS: BP 127/55
[2017-06-25] MEDS: LEVOFLOXACIN 250MG PREMIX 50 ML IV SCH (13:27)
[2017-06-25 13:57] LABS: PLATELET ESTIMATE NORMAL
[2017-06-25] MEDS: VANCOMYCIN 1 G PREMIX 200 ML IV SCH (16:50)
[2017-06-25 20:00] VITALS: BP 132/54
[2017-06-25] MEDS: TRAZODONE HCL 100MG TABLET PO PRN (23:05)
[2017-06-26] VITALS: BP 147/57
[2017-06-26] MEDS: IPRATROPIUM/ALBUTEROL 0.5-3(2.5)MG/3ML NEB HHN SCH ×6 (00:59→20:45)
[2017-06-26] MEDS: TRAMADOL 50MG TABLET PO PRN ×2 (02:45→10:02)
[2017-06-26 04:00] VITALS: BP 129/50
[2017-06-26] MEDS: BLOOD SUGAR DIAGNOSTIC STRIP TEST SCH ×4 (06:14→21:14)
[2017-06-26] MEDS: INSULIN LISPRO 100 UNITS/ML SUBCUT SCH ×4 (06:15→21:00)
[2017-06-26 07:38] LABS: HEMATOCRIT. 28.2 % (36.0-48.0); HEMOGLOBIN. 9.6 g/dL (12.0-16.0); MEAN CORPUSCULAR HEMOGLOBIN 30.2 pg (28.0-32.0); MEAN CORPUSCULAR VOLUME 88.8 fL (81.0-99.0); MEAN PLATELET VOLUME 7.9 fl (7.4-10.4); PLATELET 408 x1000/uL (130-400); RED BLOOD CELL COUNT 3.17 mill/uL (4.2-5.4); RED CELL DISTRIBUTION WIDTH 14.7 % (11.6-14.6)
[2017-06-26 08:09] LABS: CARBON DIOXIDE 29 mEq/L (21-32); CHLORIDE 100 mEq/L (98-107)
[2017-06-26 08:53] VITALS: BP 139/55
[2017-06-26] MEDS: DOCUSATE SODIUM 100MG CAPSULE PO SCH (10:01)
[2017-06-26] MEDS: ARIPIPRAZOLE 2MG TABLET PO SCH (10:01)
[2017-06-26] MEDS: CITALOPRAM HYDROBROMIDE 10MG TABLET PO SCH (10:01)
[2017-06-26] MEDS: GUAIFENESIN 600MG ER TABLET PO SCH ×2 (10:01→21:13)
[2017-06-26] MEDS: LAMOTRIGINE 25MG TABLET PO SCH (10:03)
[2017-06-26] MEDS: NIFEDIPINE XL 30MG TAB PO SCH (10:03)
[2017-06-26] MEDS: BACLOFEN 10MG TABLET PO SCH (10:03)
[2017-06-26] MEDS: CYANOCOBALAMIN 1000MCG TABLET PO SCH (10:03)
[2017-06-26] MEDS: ENOXAPARIN 30MG/0.3ML SYR SUBCUT SCH ×2 (10:04→21:14)
[2017-06-26] MEDS: PREGABALIN 25MG CAPSULE PO SCH ×3 (10:04→16:47)
[2017-06-26] MEDS: IBRANCE 100 MG PO SCH (10:12)
[2017-06-26] MEDS ORDERED: LEVOFLOXACIN 500MG PREMIX 100 ML IV SCH (11:00)
[2017-06-26] MEDS: MAGNESIUM OXIDE 400MG TABLET PO SCH (11:40)
[2017-06-26 12:30] VITALS: BP 143/52
[2017-06-26] MEDS: LEVOFLOXACIN 500MG PREMIX 100 ML IV SCH (13:09)
[2017-06-26] MEDS ORDERED: MAGNESIUM 2 G PREMIX 50 ML IV NR (14:00)
[2017-06-26 14:16] LABS: PLATELET ESTIMATE NORMAL
[2017-06-26] MEDS: VANCOMYCIN 1 G PREMIX 200 ML IV SCH (15:58)
[2017-06-26 16:30] VITALS: BP 135/49
[2017-06-26] MEDS: ACETAMINOPHEN 325MG TABLET PO PRN ×2 (16:45→23:29)
[2017-06-26 20:00] VITALS: BP 136/38
[2017-06-26] MEDS ORDERED: AMLODIPINE 2.5MG TABLET PO SCH (21:00)
[2017-06-26] MEDS: AMLODIPINE 5MG TABLET PO SCH (21:13)
[2017-06-26] MEDS: TRAZODONE HCL 100MG TABLET PO PRN (23:29)
[2017-06-27] VITALS: BP 150/62
[2017-06-27] MEDS: IPRATROPIUM/ALBUTEROL 0.5-3(2.5)MG/3ML NEB HHN SCH ×4 (00:12→14:05)
[2017-06-27 04:00] VITALS: BP 141/47
[2017-06-27] MEDS: INSULIN LISPRO 100 UNITS/ML SUBCUT SCH ×3 (06:13→17:15)
[2017-06-27] MEDS: BLOOD SUGAR DIAGNOSTIC STRIP TEST SCH ×2 (06:13→12:13)
[2017-06-27 06:38] LABS: HEMATOCRIT. 29.3 % (36.0-48.0); HEMOGLOBIN. 9.7 g/dL (12.0-16.0); MEAN CORPUSCULAR HEMOGLOBIN 29.7 pg (28.0-32.0); MEAN CORPUSCULAR VOLUME 89.6 fL (81.0-99.0); MEAN PLATELET VOLUME 7.8 fl (7.4-10.4); PLATELET 419 x1000/uL (130-400); RED BLOOD CELL COUNT 3.27 mill/uL (4.2-5.4); RED CELL DISTRIBUTION WIDTH 14.5 % (11.6-14.6)
[2017-06-27 08:00] VITALS: BP 154/61
[2017-06-27] MEDS: DOCUSATE SODIUM 100MG CAPSULE PO SCH (08:16)
[2017-06-27] MEDS: CITALOPRAM HYDROBROMIDE 10MG TABLET PO SCH (08:16)
[2017-06-27] MEDS: BACLOFEN 10MG TABLET PO SCH (08:16)
[2017-06-27] MEDS: AMLODIPINE 5MG TABLET PO SCH (08:17)
[2017-06-27] MEDS: CYANOCOBALAMIN 1000MCG TABLET PO SCH (08:17)
[2017-06-27] MEDS: GUAIFENESIN 600MG ER TABLET PO SCH (08:17)
[2017-06-27] MEDS: PREGABALIN 25MG CAPSULE PO SCH ×3 (08:17→17:19)
[2017-06-27] MEDS: LAMOTRIGINE 25MG TABLET PO SCH (08:18)
[2017-06-27] MEDS: ENOXAPARIN 30MG/0.3ML SYR SUBCUT SCH (08:18)
[2017-06-27] MEDS: ARIPIPRAZOLE 2MG TABLET PO SCH (08:18)
[2017-06-27] MEDS: MAGNESIUM OXIDE 400MG TABLET PO SCH (08:18)
[2017-06-27] MEDS: IBRANCE 100 MG PO SCH (08:25)
[2017-06-27] MEDS: LEVOFLOXACIN 500MG PREMIX 100 ML IV SCH (12:15)
[2017-06-27 13:45] LABS: PLATELET ESTIMATE SLIGHTLY INCREASED
[2017-06-27] MEDS: VANCOMYCIN 1 G PREMIX 200 ML IV SCH (15:43)
[2017-06-27] MEDS: ACETAMINOPHEN 325MG TABLET PO PRN (15:43)
[2017-06-27 16:00] VITALS: BP 110/71
== END 2017-06-27 17:30 | DRG 871 ==
LOC: ER 18:09 → 5WST 19:56 → EDBEDREQTM 20:00 → EDBEDREQ 20:00 → ENRESERV 20:13
PROVIDERS: ADMIT Internal Medicine Geriatric Medicine; ATTEND Internal Medicine Geriatric Medicine
DX: A41.9 Sepsis, unspecified organism (principal); J69.0 Pneumonitis due to inhalation of food and vomit; J96.00 Acute respiratory failure, unspecified whether with hypoxia or hypercapnia; N17.0 Acute kidney failure with tubular necrosis; I95.9 Hypotension, unspecified; D61.818 Other pancytopenia; I13.0 Hypertensive heart and chronic kidney disease with heart failure and stage 1 through stage 4 chronic kidney disease, or unspecified chronic kidney disease; E87.1 Hypo-osmolality and hyponatremia; J44.0 Chronic obstructive pulmonary disease with (acute) lower respiratory infection; I50.9 Heart failure, unspecified; E44.0 Moderate protein-calorie malnutrition; J44.1 Chronic obstructive pulmonary disease with (acute) exacerbation; N30.00 Acute cystitis without hematuria; E83.42 Hypomagnesemia; E66.01 Morbid (severe) obesity due to excess calories; I27.2 Other secondary pulmonary hypertension; I45.10 Unspecified right bundle-branch block; N18.3 Chronic kidney disease, stage 3 (moderate); I87.2 Venous insufficiency (chronic) (peripheral); C50.919 Malignant neoplasm of unspecified site of unspecified female breast; K80.20 Calculus of gallbladder without cholecystitis without obstruction; B96.20 Unspecified Escherichia coli [E. coli] as the cause of diseases classified elsewhere; D63.8 Anemia in other chronic diseases classified elsewhere; E11.22 Type 2 diabetes mellitus with diabetic chronic kidney disease; E86.9 Volume depletion, unspecified; F31.9 Bipolar disorder, unspecified; G47.00 Insomnia, unspecified; G89.29 Other chronic pain; H40.9 Unspecified glaucoma; E11.51 Type 2 diabetes mellitus with diabetic peripheral angiopathy without gangrene; J32.9 Chronic sinusitis, unspecified; E66.9 Obesity, unspecified; K21.9 Gastro-esophageal reflux disease without esophagitis; K44.9 Diaphragmatic hernia without obstruction or gangrene; K76.89 Other specified diseases of liver; M12.9 Arthropathy, unspecified; N28.1 Cyst of kidney, acquired; N30.90 Cystitis, unspecified without hematuria; Z80.3 Family history of malignant neoplasm of breast; Z80.51 Family history of malignant neoplasm of kidney; Z82.49 Family history of ischemic heart disease and other diseases of the circulatory system; Z83.3 Family history of diabetes mellitus; Z85.028 Personal history of other malignant neoplasm of stomach; Z85.05 Personal history of malignant neoplasm of liver; Z85.3 Personal history of malignant neoplasm of breast; Z86.73 Personal history of transient ischemic attack (TIA), and cerebral infarction without residual deficits; Z87.891 Personal history of nicotine dependence; Z90.13 Acquired absence of bilateral breasts and nipples; Z90.710 Acquired absence of both cervix and uterus; Z92.3 Personal history of irradiation; Z99.3 Dependence on wheelchair; Z68.39 Body mass index [BMI] 39.0-39.9, adult; Z88.6 Allergy status to analgesic agent; Z88.8 Allergy status to other drugs, medicaments and biological substances; Z79.1 Long term (current) use of non-steroidal anti-inflammatories (NSAID); Z79.899 Other long term (current) drug therapy; Z79.84 Long term (current) use of oral hypoglycemic drugs
CPT/HCPCS: 36415; 36600; 71010; 71250; 74000; 78580; 80048; 80053; 80202; 80307; 81001; 82270; 82375; 82550; 82805; 82962; 83036; 83605; 83690; 83735; 84100; 84443; 84484; 85025; 85610; 85730; 87040; 87070; 87077; 87086; 87186; 87493; 93005; 94640; 94664; 96365; 96366; 96367; 97110; 97162; 97166; 97530; 99285; A6261; C1893; J1650; J1815; J1956; J2543; J3370; J3475; J3480; J7040; J7050; J7620

== ENCOUNTER 2017-12-10 11:30 | Inpatient (IN) | payer MEDICARE, MEDICAID ==
[~2017-12-10] VITALS: Ht 165.1 cm; Wt 89.8 kg
[~2017-12-10 11:30] MED LIST changes: +ABIL10 PO; +AMLO5TAB4 PO; -ARIP2TAB3 PO; +FLUT9.9S NS; +IPRA3AMP9 HHN; +LINZESS PO; +MAGN400C PO; +MONT10TA21 PO; +ONDA4TAB5 PO
[2017-12-10] MEDS ORDERED: SODIUM CHLORIDE 0.9% 1,000 ML IV ONE ×2 (11:49→15:15)
[2017-12-10] MEDS ORDERED: ACETAMINOPHEN 650MG/20.3ML UDC GT PRN (12:30)
[2017-12-10] MEDS ORDERED: MAGNESIUM/ALUMINUM HYDROXIDE/SIMETHICONE 30ML UDC PO PRN (12:30)
[2017-12-10] MEDS ORDERED: HYDROCODONE/ACETAMINOPHEN 5/325MG TABLET PO PRN (12:30)
[2017-12-10] MEDS ORDERED: GUAIFENESIN 200MG/10ML SUGAR FREE UDC PO PRN (12:30)
[2017-12-10] MEDS ORDERED: CLONIDINE 0.1MG TABLET PO PRN (12:30)
[2017-12-10] MEDS ORDERED: ONDANSETRON HCL 4MG/2ML VIAL IV PRN (12:30)
[2017-12-10 12:37] LABS: BASOPHILS % 0.3 % (0.0-2.0); EOSINOPHILS % 1.4 % (0.0-5.0); HEMATOCRIT. 35.9 % (36.0-48.0); HEMOGLOBIN. 11.3 g/dL (12.0-16.0); LYMPHOCYTES % 7.1 % (20.0-50.0); MEAN CORPUSCULAR HEMOGLOBIN 27.1 pg (28.0-32.0); MEAN CORPUSCULAR VOLUME 86.1 fL (81.0-99.0); MEAN PLATELET VOLUME 8.5 fl (7.4-10.4); MONOCYTES % 8.1 % (2.0-8.0); NEUTROPHILS % 83.1 % (40.0-76.0); PLATELET 465 x1000/uL (130-400); RED BLOOD CELL COUNT 4.17 mill/uL (4.2-5.4); RED CELL DISTRIBUTION WIDTH 16.6 % (11.6-14.6)
[2017-12-10 12:44] LABS: INR 1.1; PROTHROMBIN TIME 11.6 sec (9.4-11.6)
[2017-12-10 12:50] LABS: CHLORIDE 102 mEq/L (98-107)
[2017-12-10 12:59] LABS: CLARITY URINE CLEAR (CLEAR); COLOR URINE YELLOW (YELLOW); KETONES URINE NEGATIVE (NEGATIVE); LEUKOCYTE ESTERASE URINE NEGATIVE (NEGATIVE); NITRITE URINE NEGATIVE (NEGATIVE); OCCULT BLOOD URINE NEGATIVE (NEGATIVE); PH URINE 6.5 (4.5-8.0); PROTEIN URINE 1+ (NEGATIVE); SPECIFIC GRAVITY URINE 1.015 (1.005-1.030); UROBILINOGEN URINE 0.2 E.U./dL (0.2-1.0)
[2017-12-10] MEDS ORDERED: DEXT 5%/0.45% NACL 1000ML 1,000 ML IV SCH (21:00)
[2017-12-10] MEDS: MONTELUKAST SODIUM 10MG TABLET PO SCH (21:00)
[2017-12-10] MEDS: FLUTICASONE PROPIONATE 50MCG/SPRAY BOTTLE BOTHNSTRLS SCH (22:30)
[2017-12-10 22:34] VITALS: BP 131/50
[2017-12-10] MEDS: FAMOTIDINE 20MG/2ML VIAL IV SCH (23:53)
[2017-12-10] MEDS: ENOXAPARIN 40MG/0.4ML SYR SUBCUT SCH (23:56)
[2017-12-11] VITALS (7 sets, daily range): BP systolic 94–140; BP diastolic 49–92
[2017-12-11] MEDS: IPRATROPIUM/ALBUTEROL 0.5-3(2.5)MG/3ML NEB HHN SCH ×6 (01:13→21:47)
[2017-12-11] MEDS ORDERED: DEXTROSE 50% WATER 50ML SYRINGE IV PRN ×2 (08:00)
[2017-12-11] MEDS: INSULIN LISPRO 100 UNITS/ML SUBCUT SCH ×4 (08:10→21:00)
[2017-12-11] MEDS: BLOOD SUGAR DIAGNOSTIC STRIP TEST SCH ×4 (08:15→21:34)
[2017-12-11] MEDS: LAMOTRIGINE 100MG TABLET PO SCH (09:00)
[2017-12-11] MEDS: CYANOCOBALAMIN 1000MCG TABLET PO SCH (09:00)
[2017-12-11] MEDS: DOCUSATE SODIUM 250MG CAPSULE PO SCH (09:00)
[2017-12-11] MEDS: NIFEDIPINE XL 30MG TAB PO SCH (09:00)
[2017-12-11] MEDS ORDERED: BACLOFEN 10MG TABLET PO SCH (09:00)
[2017-12-11] MEDS: FLUTICASONE PROPIONATE 50MCG/SPRAY BOTTLE BOTHNSTRLS SCH ×2 (09:00→21:33)
[2017-12-11 09:01] LABS: BASOPHILS % 0.3 % (0.0-2.0); EOSINOPHILS % 2.2 % (0.0-5.0); HEMATOCRIT. 34.5 % (36.0-48.0); HEMOGLOBIN. 10.8 g/dL (12.0-16.0); LYMPHOCYTES % 8.3 % (20.0-50.0); MEAN CORPUSCULAR VOLUME 86.4 fL (81.0-99.0); MEAN PLATELET VOLUME 8.7 fl (7.4-10.4); MONOCYTES % 10.4 % (2.0-8.0); NEUTROPHILS % 78.8 % (40.0-76.0); PLATELET 424 x1000/uL (130-400); RED CELL DISTRIBUTION WIDTH 16.3 % (11.6-14.6)
[2017-12-11 09:29] LABS: CHLORIDE 105 mEq/L (98-107)
[2017-12-11 09:41] LABS: PHOSPHORUS 4.7 mg/dL (2.5-4.9)
[2017-12-11 10:27] LABS: BG BASE EXCESS 7.2 mmol/L (-2.0-2.0); BG CARBOXYHEMOGLOBIN 0.2 % (0.5-1.5); BG DEOXYHEMOGLOBIN 7.8 % (0.0-5.0); BG FRACTION INSPIRED OXYGEN 28; BG HCO3 ACT 33.3 mmol/L (22.0-26.0); BG METHEMOGLOBIN 0.3 % (0.0-1.5); BG OXYGEN SATURATION 92.2 % (92.0-98.5); BG OXYHEMOGLOBIN 91.7 % (94.0-97.0); BG PCO2 54.7 mmHg (35.0-45.0); BG PH 7.402 (7.350-7.450); BG PO2 66.7 mmHg (75.0-100.0); BG SAMPLE SITE RIGHT RADIAL; BG TOTAL HEMOGLOBIN 10.9 g/dL (12.0-18.0); BG VENT MODE NASAL CANNULA
[2017-12-11] MEDS ORDERED: WATER IV NR (16:00)
[2017-12-11] MEDS ORDERED: DEXT 5% IV NR (16:00)
[2017-12-11] MEDS ORDERED: PAMIDRONATE DISODIUM IV NR (16:00)
[2017-12-11] MEDS: DEXT 5%/0.45% NACL KCL 20MEQ/L 1,000 ML IV SCH ×2 (17:06→19:00)
[2017-12-11] MEDS: MONTELUKAST SODIUM 10MG TABLET PO SCH (21:00)
[2017-12-11] MEDS: FAMOTIDINE 20MG/2ML VIAL IV SCH (21:34)
[2017-12-11] MEDS: PANTOPRAZOLE SODIUM 40 MG/VIAL IV SCH (21:34)
[2017-12-12] VITALS (7 sets, daily range): BP systolic 105–141; BP diastolic 45–87
[2017-12-12] MEDS: IPRATROPIUM/ALBUTEROL 0.5-3(2.5)MG/3ML NEB HHN SCH ×6 (01:10→20:45)
[2017-12-12] MEDS: DEXT 5%/0.45% NACL KCL 20MEQ/L 1,000 ML IV SCH ×3 (05:00→16:30)
[2017-12-12 06:05] LABS: PHOSPHORUS 3.6 mg/dL (2.5-4.9)
[2017-12-12 06:06] LABS: AMMONIA < 25 uMol/L (<32)
[2017-12-12 06:11] LABS: HEMATOCRIT. 32.5 % (36.0-48.0); HEMOGLOBIN. 10.5 g/dL (12.0-16.0); MEAN CORPUSCULAR HEMOGLOBIN 27.8 pg (28.0-32.0); MEAN CORPUSCULAR VOLUME 86.2 fL (81.0-99.0); MEAN PLATELET VOLUME 8.7 fl (7.4-10.4); PLATELET 356 x1000/uL (130-400); RED BLOOD CELL COUNT 3.77 mill/uL (4.2-5.4); RED CELL DISTRIBUTION WIDTH 16.4 % (11.6-14.6)
[2017-12-12 06:14] LABS: INR 1.1
[2017-12-12] MEDS: BLOOD SUGAR DIAGNOSTIC STRIP TEST SCH ×4 (06:37→22:14)
[2017-12-12 06:51] LABS: PARTIAL THROMBOPLASTIN TIME < 20.0 sec (23.4-31.0)
[2017-12-12] MEDS ORDERED: CEFAZOLIN 1000MG PREMIX 50 ML IV NR (07:00)
[2017-12-12 07:05] LABS: VITAMIN B12 SERUM >2000 pg/mL pg/mL (211-911)
[2017-12-12] MEDS: INSULIN LISPRO 100 UNITS/ML SUBCUT SCH ×4 (08:10→21:00)
[2017-12-12] MEDS ORDERED: FUROSEMIDE 40MG/4ML VIAL IVP NR (08:30)
[2017-12-12] MEDS: FLUTICASONE PROPIONATE 50MCG/SPRAY BOTTLE BOTHNSTRLS SCH ×2 (09:00→21:00)
[2017-12-12] MEDS: LAMOTRIGINE 100MG TABLET PO SCH (09:00)
[2017-12-12] MEDS: CYANOCOBALAMIN 1000MCG TABLET PO SCH (09:00)
[2017-12-12] MEDS: NIFEDIPINE XL 30MG TAB PO SCH (09:00)
[2017-12-12] MEDS: DOCUSATE SODIUM 250MG CAPSULE PO SCH (09:00)
[2017-12-12 13:12] LABS: PLATELET ESTIMATE NORMAL
[2017-12-12] MEDS ORDERED: PAMIDRONATE DISODIUM 90 MG in SODIUM CHLORIDE 0.9% 500 ML IV ONE (14:00)
[2017-12-12] MEDS: PANTOPRAZOLE SODIUM 40 MG/VIAL IV SCH ×2 (14:27→21:59)
[2017-12-12] MEDS: MORPHINE SULFATE 4 MG/ML CPJ (NOT FOR IM USE) IV PRN (14:30)
[2017-12-12 15:18] LABS: BG BASE EXCESS 6.2 mmol/L (-2.0-2.0); BG CARBOXYHEMOGLOBIN 0.8 % (0.5-1.5); BG DEOXYHEMOGLOBIN 7.6 % (0.0-5.0); BG FRACTION INSPIRED OXYGEN 28; BG HCO3 ACT 31.4 mmol/L (22.0-26.0); BG METHEMOGLOBIN 0.1 % (0.0-1.5); BG OXYGEN SATURATION 92.3 % (92.0-98.5); BG OXYHEMOGLOBIN 91.5 % (94.0-97.0); BG PH 7.433 (7.350-7.450); BG PO2 65.9 mmHg (75.0-100.0); BG SAMPLE SITE RIGHT RADIAL; BG VENT MODE NASAL CANNULA
[2017-12-12] MEDS: MONTELUKAST SODIUM 10MG TABLET PO SCH (21:00)
[2017-12-12] MEDS: FAMOTIDINE 20MG/2ML VIAL IV SCH (21:58)
[2017-12-13] MEDS: IPRATROPIUM/ALBUTEROL 0.5-3(2.5)MG/3ML NEB HHN SCH ×6 (00:36→20:08)
[2017-12-13 04:00] VITALS: BP 127/71
[2017-12-13] MEDS: DEXT 5%/0.45% NACL KCL 20MEQ/L 1,000 ML IV SCH ×3 (04:53→21:03)
[2017-12-13] MEDS: BLOOD SUGAR DIAGNOSTIC STRIP TEST SCH ×4 (06:14→21:02)
[2017-12-13 07:33] LABS: HEMATOCRIT. 32.6 % (36.0-48.0); HEMOGLOBIN. 10.5 g/dL (12.0-16.0); MEAN CORPUSCULAR HEMOGLOBIN 27.4 pg (28.0-32.0); MEAN CORPUSCULAR VOLUME 85.2 fL (81.0-99.0); MEAN PLATELET VOLUME 8.4 fl (7.4-10.4); PLATELET 383 x1000/uL (130-400); RED BLOOD CELL COUNT 3.82 mill/uL (4.2-5.4); RED CELL DISTRIBUTION WIDTH 16.4 % (11.6-14.6)
[2017-12-13 08:00] VITALS: BP 145/40
[2017-12-13] MEDS: INSULIN LISPRO 100 UNITS/ML SUBCUT SCH ×4 (08:10→21:00)
[2017-12-13 09:01] LABS: PLATELET ESTIMATE NORMAL
[2017-12-13] MEDS: FLUTICASONE PROPIONATE 50MCG/SPRAY BOTTLE BOTHNSTRLS SCH ×2 (09:28→21:02)
[2017-12-13] MEDS: PANTOPRAZOLE SODIUM 40 MG/VIAL IV SCH ×2 (09:28→21:02)
[2017-12-13] MEDS: NIFEDIPINE XL 30MG TAB PO SCH (09:28)
[2017-12-13] MEDS: DOCUSATE SODIUM 250MG CAPSULE PO SCH (09:29)
[2017-12-13] MEDS: LAMOTRIGINE 100MG TABLET PO SCH (09:29)
[2017-12-13] MEDS: CYANOCOBALAMIN 1000MCG TABLET PO SCH (09:30)
[2017-12-13] MEDS ORDERED: POTASSIUM CHLORIDE INJ 40 MEQ in DEXT 5% WATER 250 ML IV NR (10:00)
[2017-12-13] MEDS ORDERED: PAMIDRONATE DISODIUM 90 MG in SODIUM CHLORIDE 0.9% 500 ML IV NR (11:00)
[2017-12-13 12:00] VITALS: BP 115/45
[2017-12-13 16:00] VITALS: BP 107/40
[2017-12-13 20:00] VITALS: BP 107/38
[2017-12-13] MEDS: MONTELUKAST SODIUM 10MG TABLET PO SCH (21:00)
[2017-12-13] MEDS: FAMOTIDINE 20MG/2ML VIAL IV SCH (21:02)
[2017-12-14] VITALS: BP 122/47
[2017-12-14] MEDS: IPRATROPIUM/ALBUTEROL 0.5-3(2.5)MG/3ML NEB HHN SCH ×6 (00:09→21:21)
[2017-12-14 04:00] VITALS: BP 107/41
[2017-12-14] MEDS: DEXT 5%/0.45% NACL KCL 20MEQ/L 1,000 ML IV SCH (05:41)
[2017-12-14] MEDS: BLOOD SUGAR DIAGNOSTIC STRIP TEST SCH ×4 (06:11→20:14)
[2017-12-14 06:39] LABS: BASOPHILS % 0.4 % (0.0-2.0); EOSINOPHILS % 2.7 % (0.0-5.0); HEMATOCRIT. 31.9 % (36.0-48.0); HEMOGLOBIN. 10.2 g/dL (12.0-16.0); LYMPHOCYTES % 8.2 % (20.0-50.0); MEAN CORPUSCULAR HEMOGLOBIN 27.4 pg (28.0-32.0); MEAN CORPUSCULAR VOLUME 85.6 fL (81.0-99.0); MEAN PLATELET VOLUME 8.6 fl (7.4-10.4); MONOCYTES % 9.8 % (2.0-8.0); NEUTROPHILS % 78.9 % (40.0-76.0); PLATELET 364 x1000/uL (130-400); RED BLOOD CELL COUNT 3.72 mill/uL (4.2-5.4); RED CELL DISTRIBUTION WIDTH 16.9 % (11.6-14.6)
[2017-12-14 07:19] LABS: CHLORIDE 111 mEq/L (98-107)
[2017-12-14] MEDS: INSULIN LISPRO 100 UNITS/ML SUBCUT SCH ×4 (07:25→20:34)
[2017-12-14 08:18] VITALS: BP 132/45
[2017-12-14] MEDS ORDERED: FUROSEMIDE 40MG/4ML VIAL IVP NR (08:45)
[2017-12-14] MEDS: DOCUSATE SODIUM 250MG CAPSULE PO SCH (09:00)
[2017-12-14] MEDS: FLUTICASONE PROPIONATE 50MCG/SPRAY BOTTLE BOTHNSTRLS SCH ×2 (09:00→20:33)
[2017-12-14] MEDS: LAMOTRIGINE 100MG TABLET PO SCH (09:00)
[2017-12-14] MEDS: CYANOCOBALAMIN 1000MCG TABLET PO SCH (09:00)
[2017-12-14] MEDS: NIFEDIPINE XL 30MG TAB PO SCH (09:00)
[2017-12-14] MEDS: PANTOPRAZOLE SODIUM 40 MG/VIAL IV SCH ×2 (09:47→20:33)
[2017-12-14] MEDS: DEXT 5% WATER + KCL 20MEQ/L 1,000 ML IV SCH (10:30)
[2017-12-14] MEDS ORDERED: PAMIDRONATE DISODIUM IV NR (10:30)
[2017-12-14] MEDS ORDERED: WATER IV NR (10:30)
[2017-12-14] MEDS ORDERED: DEXT 5% IV NR (10:30)
[2017-12-14] MEDS ORDERED: PAMIDRONATE DISODIUM 60 MG in SODIUM CHLORIDE 0.9% 500 ML IV NR (10:30)
[2017-12-14] MEDS ORDERED: SODIUM CHLORIDE 0.9% 10ML VIAL ONE (10:45)
[2017-12-14] MEDS ORDERED: SIMETHICONE 40 MG/0.6 ML 30ML ONE (10:45)
[2017-12-14 12:33] VITALS: BP 122/58
[2017-12-14] MEDS ORDERED: FENTANYL CITRATE/PF 50MCG/ML 2ML VIAL ONE ×2 (14:26→14:27)
[2017-12-14] MEDS ORDERED: MIDAZOLAM HCL 5 MG/5 ML VIAL ONE (14:27)
[2017-12-14] MEDS ORDERED: CEFAZOLIN 1000MG PREMIX 50 ML IV ONE ×2 (14:28→14:41)
[2017-12-14] MEDS ORDERED: FENTANYL CITRATE/PF 50MCG/ML 2ML VIAL IV PRN (14:38)
[2017-12-14] MEDS ORDERED: MIDAZOLAM HCL 5 MG/5 ML VIAL IV PRN (14:39)
[2017-12-14 17:29] VITALS: BP 125/44
[2017-12-14 20:00] VITALS: BP 145/69
[2017-12-14] MEDS: FAMOTIDINE 20MG/2ML VIAL IV SCH (20:32)
[2017-12-14] MEDS: METOCLOPRAMIDE HCL 10MG/2ML VIAL IV SCH (20:32)
[2017-12-14] MEDS: MONTELUKAST SODIUM 10MG TABLET PO SCH (20:33)
[2017-12-14] MEDS: CEFAZOLIN 1000MG PREMIX 50 ML IV SCH (23:14)
[2017-12-15] VITALS: BP 140/56
[2017-12-15] MEDS: IPRATROPIUM/ALBUTEROL 0.5-3(2.5)MG/3ML NEB HHN SCH ×6 (00:16→21:42)
[2017-12-15] MEDS: METOCLOPRAMIDE HCL 10MG/2ML VIAL IV SCH ×4 (02:41→22:07)
[2017-12-15] MEDS: DEXT 5% WATER + KCL 20MEQ/L 1,000 ML IV SCH ×2 (02:41→13:16)
[2017-12-15 04:00] VITALS: BP 126/58
[2017-12-15] MEDS: CEFAZOLIN 1000MG PREMIX 50 ML IV SCH ×2 (06:37→16:20)
[2017-12-15 07:18] LABS: PHOSPHORUS 1.5 mg/dL (2.5-4.9)
[2017-12-15 07:43] VITALS: BP 125/69
[2017-12-15] MEDS: INSULIN LISPRO 100 UNITS/ML SUBCUT SCH ×4 (08:10→20:55)
[2017-12-15] MEDS: BLOOD SUGAR DIAGNOSTIC STRIP TEST SCH ×4 (08:26→20:55)
[2017-12-15] MEDS ORDERED: PAMIDRONATE DISODIUM 60 MG in SODIUM CHLORIDE 0.9% 500 ML IV ONE (08:45)
[2017-12-15] MEDS ORDERED: FUROSEMIDE 20MG/2ML VIAL IVP SCH ×2 (09:00)
[2017-12-15] MEDS: DOCUSATE SODIUM 250MG CAPSULE PO SCH (09:00)
[2017-12-15] MEDS ORDERED: FUROSEMIDE 40MG/4ML VIAL IV SCH (09:00)
[2017-12-15] MEDS ORDERED: FUROSEMIDE 40MG/4ML VIAL IV NR (09:22)
[2017-12-15] MEDS: PANTOPRAZOLE SODIUM 40 MG/VIAL IV SCH (10:04)
[2017-12-15] MEDS: CYANOCOBALAMIN 1000MCG TABLET PO SCH (10:04)
[2017-12-15] MEDS: LAMOTRIGINE 100MG TABLET PO SCH (10:05)
[2017-12-15] MEDS: NIFEDIPINE XL 30MG TAB PO SCH (10:06)
[2017-12-15 11:59] VITALS: BP 134/54
[2017-12-15] MEDS ORDERED: POTASSIUM PHOS,M-BASIC-D-BASIC 20 MMOL in SODIUM CHLORIDE 0.9% 250 ML IV NR (13:30)
[2017-12-15 15:30] VITALS: BP 133/53
[2017-12-15] MEDS: MORPHINE SULFATE 4 MG/ML CPJ (NOT FOR IM USE) IV PRN (17:22)
[2017-12-15 20:00] VITALS: BP 106/38
[2017-12-15] MEDS: ENOXAPARIN 40MG/0.4ML SYR SUBCUT SCH (20:55)
[2017-12-15] MEDS: FAMOTIDINE 20MG/2ML VIAL IV SCH (20:55)
[2017-12-15] MEDS: MONTELUKAST SODIUM 10MG TABLET PO SCH (20:55)
[2017-12-16] VITALS: BP 109/47
[2017-12-16] MEDS: IPRATROPIUM/ALBUTEROL 0.5-3(2.5)MG/3ML NEB HHN SCH ×6 (00:15→21:09)
[2017-12-16] MEDS: DEXT 5% WATER + KCL 20MEQ/L 1,000 ML IV SCH (03:08)
[2017-12-16] MEDS: METOCLOPRAMIDE HCL 10MG/2ML VIAL IV SCH ×3 (03:09→15:49)
[2017-12-16] MEDS: CEFAZOLIN 1000MG PREMIX 50 ML IV SCH ×2 (03:22→15:49)
[2017-12-16 04:00] VITALS: BP 124/40
[2017-12-16] MEDS: MORPHINE SULFATE 4 MG/ML CPJ (NOT FOR IM USE) IV PRN ×2 (05:16→13:17)
[2017-12-16] MEDS: BLOOD SUGAR DIAGNOSTIC STRIP TEST SCH ×4 (07:40→21:00)
[2017-12-16 07:54] LABS: BASOPHILS % 0.5 % (0.0-2.0); HEMATOCRIT. 36.2 % (36.0-48.0); HEMOGLOBIN. 11.2 g/dL (12.0-16.0); LYMPHOCYTES % 8.6 % (20.0-50.0); MEAN CORPUSCULAR HEMOGLOBIN 26.4 pg (28.0-32.0); MEAN CORPUSCULAR VOLUME 85.3 fL (81.0-99.0); MEAN PLATELET VOLUME 9.2 fl (7.4-10.4); NEUTROPHILS % 76.9 % (40.0-76.0); PLATELET 349 x1000/uL (130-400); RED BLOOD CELL COUNT 4.24 mill/uL (4.2-5.4); RED CELL DISTRIBUTION WIDTH 16.9 % (11.6-14.6)
[2017-12-16 08:00] VITALS: BP 96/56
[2017-12-16 08:36] LABS: PREALBUMIN 7.6 mg/dL (20.0-40.0)
[2017-12-16] MEDS: DOCUSATE SODIUM 250MG CAPSULE PO SCH (09:00)
[2017-12-16] MEDS ORDERED: FUROSEMIDE 20MG/2ML VIAL IVP SCH (09:00)
[2017-12-16] MEDS ORDERED: FUROSEMIDE 40MG/4ML VIAL IVP NR (09:30)
[2017-12-16] MEDS: CYANOCOBALAMIN 1000MCG TABLET PO SCH (10:20)
[2017-12-16] MEDS: LAMOTRIGINE 100MG TABLET PO SCH (10:21)
[2017-12-16] MEDS: INSULIN LISPRO 100 UNITS/ML SUBCUT SCH ×4 (10:22→21:00)
[2017-12-16] MEDS: NIFEDIPINE XL 30MG TAB PO SCH (10:44)
[2017-12-16 12:00] VITALS: BP 94/45
[2017-12-16] MEDS: DOCUSATE SODIUM SUGAR FREE 100MG/10ML UDC NG SCH (13:36)
[2017-12-16 16:00] VITALS: BP 102/43
[2017-12-16 20:00] VITALS: BP 103/54
[2017-12-16] MEDS: ENOXAPARIN 40MG/0.4ML SYR SUBCUT SCH (22:31)
[2017-12-16] MEDS: MONTELUKAST SODIUM 10MG TABLET PO SCH (22:31)
[2017-12-16] MEDS: FAMOTIDINE 20MG/2ML VIAL IV SCH (22:31)
[2017-12-17] VITALS: BP 107/51
[2017-12-17] MEDS: METOCLOPRAMIDE HCL 10MG/2ML VIAL IV SCH ×2 (00:17→04:16)
[2017-12-17] MEDS: IPRATROPIUM/ALBUTEROL 0.5-3(2.5)MG/3ML NEB HHN SCH ×5 (00:55→16:00)
[2017-12-17 04:00] VITALS: BP 110/58
[2017-12-17] MEDS: CEFAZOLIN 1000MG PREMIX 50 ML IV SCH (04:16)
[2017-12-17] MEDS: BLOOD SUGAR DIAGNOSTIC STRIP TEST SCH ×2 (05:40→12:28)
[2017-12-17 07:40] LABS: HEMOGLOBIN. 11.7 g/dL (12.0-16.0); MEAN CORPUSCULAR HEMOGLOBIN 27.3 pg (28.0-32.0); MEAN CORPUSCULAR VOLUME 86.3 fL (81.0-99.0); PLATELET 388 x1000/uL (130-400); RED BLOOD CELL COUNT 4.28 mill/uL (4.2-5.4); RED CELL DISTRIBUTION WIDTH 17.2 % (11.6-14.6)
[2017-12-17 07:41] LABS: BASOPHILS % 0.5 % (0.0-2.0); EOSINOPHILS % 2.1 % (0.0-5.0); LYMPHOCYTES % 8.1 % (20.0-50.0); MONOCYTES % 12.5 % (2.0-8.0); NEUTROPHILS % 76.8 % (40.0-76.0)
[2017-12-17] MEDS: INSULIN LISPRO 100 UNITS/ML SUBCUT SCH ×2 (08:10→12:25)
[2017-12-17 08:18] VITALS: BP 95/50
[2017-12-17] MEDS ORDERED: FUROSEMIDE 40MG/4ML VIAL IV SCH (09:00)
[2017-12-17] MEDS: DOCUSATE SODIUM SUGAR FREE 100MG/10ML UDC NG SCH (09:17)
[2017-12-17] MEDS: NIFEDIPINE XL 30MG TAB PO SCH (09:18)
[2017-12-17] MEDS: LAMOTRIGINE 100MG TABLET PO SCH (09:18)
[2017-12-17] MEDS: CYANOCOBALAMIN 1000MCG TABLET PO SCH (09:19)
[2017-12-17] MEDS ORDERED: CINACALCET HCL 30MG TABLET PO SCH (10:00)
[2017-12-17 12:24] VITALS: BP 108/52
[2017-12-17 13:51] VITALS: BP 108/52
[2017-12-17 16:05] VITALS: BP 134/65
== END 2017-12-17 15:04 | DRG 682 ==
LOC: ER 11:38 → 7WST 15:03 → ENRESERV 19:51 → EDBEDREQ 20:43
PROVIDERS: ADMIT Internal Medicine Geriatric Medicine; ATTEND Internal Medicine Geriatric Medicine
PROC: 4A00X4Z Measurement of Central Nervous Electrical Activity, External Approach (ICD-10-PCS; 2017-12-12)
PROC: 0DH63UZ Insertion of Feeding Device into Stomach, Percutaneous Approach (ICD-10-PCS; principal; 2017-12-17)
DX: N17.9 Acute kidney failure, unspecified (principal); E43 Unspecified severe protein-calorie malnutrition; G93.41 Metabolic encephalopathy; E87.3 Alkalosis; R13.10 Dysphagia, unspecified; E86.0 Dehydration; E11.22 Type 2 diabetes mellitus with diabetic chronic kidney disease; E11.42 Type 2 diabetes mellitus with diabetic polyneuropathy; J44.1 Chronic obstructive pulmonary disease with (acute) exacerbation; E87.0 Hyperosmolality and hypernatremia; I13.0 Hypertensive heart and chronic kidney disease with heart failure and stage 1 through stage 4 chronic kidney disease, or unspecified chronic kidney disease; J44.0 Chronic obstructive pulmonary disease with (acute) lower respiratory infection; Z66 Do not resuscitate; J20.9 Acute bronchitis, unspecified; R62.7 Adult failure to thrive; E83.52 Hypercalcemia; E87.6 Hypokalemia; I87.2 Venous insufficiency (chronic) (peripheral); D63.8 Anemia in other chronic diseases classified elsewhere; E11.51 Type 2 diabetes mellitus with diabetic peripheral angiopathy without gangrene; E27.9 Disorder of adrenal gland, unspecified; E83.39 Other disorders of phosphorus metabolism; F03.90 Unspecified dementia, unspecified severity, without behavioral disturbance, psychotic disturbance, mood disturbance, and anxiety; F32.9 Major depressive disorder, single episode, unspecified; I25.10 Atherosclerotic heart disease of native coronary artery without angina pectoris; I50.9 Heart failure, unspecified; J37.0 Chronic laryngitis; K21.9 Gastro-esophageal reflux disease without esophagitis; K29.70 Gastritis, unspecified, without bleeding; Z96.651 Presence of right artificial knee joint; E66.01 Morbid (severe) obesity due to excess calories; F41.9 Anxiety disorder, unspecified; M15.9 Polyosteoarthritis, unspecified; M48.00 Spinal stenosis, site unspecified; N18.3 Chronic kidney disease, stage 3 (moderate); Z80.51 Family history of malignant neoplasm of kidney; Z82.49 Family history of ischemic heart disease and other diseases of the circulatory system; Z83.3 Family history of diabetes mellitus; Z85.3 Personal history of malignant neoplasm of breast; Z86.73 Personal history of transient ischemic attack (TIA), and cerebral infarction without residual deficits; Z87.01 Personal history of pneumonia (recurrent); Z87.891 Personal history of nicotine dependence; Z88.6 Allergy status to analgesic agent; Z90.13 Acquired absence of bilateral breasts and nipples; Z90.49 Acquired absence of other specified parts of digestive tract; Z90.710 Acquired absence of both cervix and uterus; Z88.8 Allergy status to other drugs, medicaments and biological substances; Z79.82 Long term (current) use of aspirin; Z79.84 Long term (current) use of oral hypoglycemic drugs; Z79.899 Other long term (current) drug therapy; Z68.32 Body mass index [BMI] 32.0-32.9, adult
CPT/HCPCS: 36415; 36600; 51702; 70551; 71045; 71250; 74176; 76700; 80048; 80053; 81003; 82140; 82330; 82375; 82607; 82805; 82962; 83036; 83605; 83735; 83970; 84100; 84134; 84443; 85025; 85610; 85730; 87040; 87086; 92523; 92610; 93005; 93970; 94640; 94664; 95816; 96360; 96361; 97163; 99285; A4216; A6261; C1893; C9113; J0690; J1650; J1815; J1940; J2250; J2270; J2405; J2430; J2765; J3010; J3480; J3490; J7030; J7040; J7050; J7060; J7620; A4315